=== PATIENT | female | born 1995 | race Caucasian/White ===

== ENCOUNTER → 2017-02-03 | Outpatient (CLI) | payer OTHER ==
--- NOTE | 2017-02-03 09:19 | RAD ---
Indication:Elevated bilirubin Grayscale images of the abdomen were obtained. Comparison none Liver:No focal mass lesion is seen in the visualized liver. Gallbladder:Normal. The common bile duct diameter of approximately 2 mm is normal Spleen:Normal Pancreas:Normal Kidneys:Normal Abdominal aorta and IVC:Normal Ancillary findings:None Impression:Normal study
== END | disposition home or self-care (01) ==
LOC: US 08:28
PROVIDERS: ATTEND Family Medicine
DX: R17 Unspecified jaundice (principal)
CPT/HCPCS: 76700